=== PATIENT | female | born 1955 | race Caucasian/White ===

== ENCOUNTER → 2016-12-20 | Outpatient (CLI) | payer OTHER | LOC: IMA 10:08 | PROVIDERS: ATTEND Internal Medicine Hematology & Oncology | DX: N95.1 Menopausal and female climacteric states (principal); M85.88 Other specified disorders of bone density and structure, other site; E28.39 Other primary ovarian failure; Z90.722 Acquired absence of ovaries, bilateral ==

== ENCOUNTER → 2017-02-15 | Outpatient (CLI) | payer OTHER ==
--- NOTE | 2017-02-20 07:25 | ECHOF ---
DATE 02/15/2017 INDICATION Chemotherapy, cardiotoxic. Access LV function. TECHNICAL QUALITY Technically good 2-D, M-mode, Doppler echocardiographic images were submitted for interpretation. FINDINGS 1. CARDIAC CHAMBERS. Left atrial size of 4.0 cm, upper-normal range. All other cardiac chambers are normal in size. RV size and contractility appeared normal. Aortic root diameter is normal. 2. LEFT VENTRICLE. Wall thickness is normal. Wall motion analysis is normal. Systolic function is normal. EF measured 67%. Diastolic function is normal. 3. VALVES. Aortic, mitral and tricuspid valve structure and motion appear normal for age. Normal valve excursion. Very minimal sclerosis present. 4. DOPPLER. Shows trace regurgitation involving mitral, tricuspid and pulmonic valves, none of hemodynamic significance. 5. No evidence of pericardial effusion or intracardiac masses. On color-flow Doppler, there is a tiny transatrial shunt present, [id number], with hypermobile interatrial septum suggestive of interatrial septal aneurysm. IMPRESSION 1. Normal LV size and systolic function, EF of 67%. 2. No significant valvular dysfunction. 3. Normal central venous pressure. Normal systolic PA pressure. 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 Bubble study was not performed. Especially if the patient is having symptoms or has prior history of TIA or stroke, then a cardiology consultation and/or SCOTTY may be beneficial. MTDD
== END ==
LOC: IMA 12:53
PROVIDERS: ATTEND Internal Medicine Hematology & Oncology
DX: Z79.899 Other long term (current) drug therapy (principal); R93.1 Abnormal findings on diagnostic imaging of heart and coronary circulation
CPT/HCPCS: 93306